=== PATIENT | female | born 1985 | race Asian ===

== ENCOUNTER → 2017-01-11 | Outpatient (CLI) | payer OTHER ==
[2017-01-11 12:17] LABS: HEMATOCRIT 37.5 % (34.6-47.8); HEMOGLOBIN 12.3 g/dL (11.7-16.4); WHITE BLOOD COUNT 8.8 x10^3/uL (3.4-10)
[2017-01-11 13:02] LABS: ASPARTATE AMINO TRANSFERASE 17 U/L (15-37); BLOOD UREA NITROGEN 13 mg/dL (7-18)
== END | disposition home or self-care (01) ==
LOC: CFH 07:36
PROVIDERS: ATTEND Family Medicine
DX: Z00.01 Encounter for general adult medical examination with abnormal findings (principal); E78.5 Hyperlipidemia, unspecified; R53.83 Other fatigue; R73.9 Hyperglycemia, unspecified; E55.9 Vitamin D deficiency, unspecified
CPT/HCPCS: 36415; 80053; 80061; 82306; 83036; 84443; 85025

== ENCOUNTER → 2018-04-23 | Outpatient (CLI) | payer OTHER ==
[2018-04-23 10:55] LABS: BASOPHILS # (AUTO) 0.11 x10^3/uL (0-0.1); BASOPHILS % (AUTO) 1 % (0-1); EOSINOPHILS # (AUTO) 0.11 x10^3/uL (0-0.4); EOSINOPHILS % (AUTO) 1 % (1-7); LYMPHOCYTES # (AUTO) 1.81 x10^3/uL (1-3.4); LYMPHOCYTES % (AUTO) 21 % (22-44); MD NO; MEAN CORPUSCULAR HEMOGLOBIN 29.1 pg (27.0-34.8); MEAN CORPUSCULAR HGB CONC 33.4 g/dL (32.4-35.8); MEAN PLATELET VOLUME 7.4 fL (7.4-10.4); MONOCYTES # (AUTO) 0.37 x10^3/uL (0.2-0.8); MONOCYTES % (AUTO) 4 % (2-9); NEUTROPHILS # (AUTO) 6.32 x10^3/uL (1.8-6.8); NEUTROPHILS % (AUTO) 73 % (42-75); PLATELET COUNT 432 x10^3/uL (130-400); RED BLOOD COUNT 4.67 x10^6/uL (3.82-5.3); RED CELL DISTRIBUTION WIDTH 14.3 % (9.6-15.2)
[2018-04-23 11:08] LABS: ALANINE AMINOTRANSFERASE 36 U/L (12-78); ALBUMIN 3.9 g/dL (3.4-5.0); ANION GAP 8 mmol/L (5-15); CALCIUM 8.5 mg/dL (8.5-10.1); CHLORIDE 106 mmol/L (98-107); CHOLESTEROL, TOTAL 214 mg/dL (140-239)
[2018-04-23 11:18] LABS: ALKALINE PHOSPHATASE 98 U/L (45-117); BILIRUBIN,TOTAL 0.3 mg/dL (0.2-1.0); CHOL/HDL RATIO 5.4; HDL CHOL % 19 % (28-40); HDL CHOLESTEROL (DIRECT) 40 mg/dL (40-60); LDL CHOLESTEROL,CALCULATED 154 mg/dL (54-169); LDL/HDL RATIO 3.9 (0.5-3.0); TOTAL PROTEIN 8.6 g/dL (6.4-8.2); TRIGLYCERIDES 102 mg/dL (50-200); VLDL CHOLESTEROL 20 mg/dL (0-25)
[2018-04-23 13:11] LABS: HEMOGLOBIN A1C 6.1 % (4.2-6.3)
== END | disposition home or self-care (01) ==
LOC: LAB 10:28
PROVIDERS: ATTEND Family Medicine
DX: Z00.00 Encounter for general adult medical examination without abnormal findings (principal); E55.9 Vitamin D deficiency, unspecified; E78.5 Hyperlipidemia, unspecified; R53.83 Other fatigue; R73.9 Hyperglycemia, unspecified
CPT/HCPCS: 36415; 80053; 80061; 82306; 83036; 84443; 85025

== ENCOUNTER → 2018-05-07 | Outpatient (CLI) | payer OTHER | END | disposition home or self-care (01) | LOC: CFH 12:58 | PROVIDERS: ATTEND Family Medicine | DX: N93.9 Abnormal uterine and vaginal bleeding, unspecified (principal) | CPT/HCPCS: 76830 ==

== ENCOUNTER → 2020-03-25 | Outpatient (CLI) | payer OTHER ==
[2020-03-25 11:15] LABS: ALBUMIN 3.7 g/dL (3.4-5.0); ANION GAP 5 mmol/L (5-15); CALCIUM 8.7 mg/dL (8.5-10.1); CHLORIDE 108 mmol/L (98-107)
[2020-03-25 11:16] LABS: BASOPHILS % (AUTO) 1 % (0-1); EOSINOPHILS % (AUTO) 2 % (1-7); LYMPHOCYTES % (AUTO) 20 % (22-44); MEAN CORPUSCULAR HEMOGLOBIN 27.6 pg (27.0-34.8); MEAN CORPUSCULAR HGB CONC 32.8 g/dL (32.4-35.8); MEAN PLATELET VOLUME 7.4 fL (7.4-10.4); MONOCYTES % (AUTO) 4 % (2-9); NEUTROPHILS % (AUTO) 73 % (42-75); PLATELET COUNT 499 x10^3/uL (130-400); RED BLOOD COUNT 3.96 x10^6/uL (3.82-5.3); RED CELL DISTRIBUTION WIDTH 14.2 % (9.6-15.2)
[2020-03-25 11:24] LABS: ALANINE AMINOTRANSFERASE 28 U/L (12-78); ALKALINE PHOSPHATASE 111 U/L (45-117); BILIRUBIN,TOTAL 0.3 mg/dL (0.2-1.0); CHOL/HDL RATIO 5.4; CHOLESTEROL, TOTAL 211 mg/dL (140-239); FREE T4 (FREE THYROXINE) 1.03 ng/dL (0.76-1.46); HDL CHOL % 18 % (28-40); HDL CHOLESTEROL (DIRECT) 39 mg/dL (40-60); LDL CHOLESTEROL,CALCULATED 144 mg/dL (54-169); LDL/HDL RATIO 3.7 (0.5-3.0); TOTAL PROTEIN 8.5 g/dL (6.4-8.2); TRIGLYCERIDES 138 mg/dL (50-200); VLDL CHOLESTEROL 28 mg/dL (0-25)
[2020-03-25 11:38] LABS: MD NO
== END | disposition home or self-care (01) ==
LOC: LAB 10:41
PROVIDERS: ATTEND Family Medicine
DX: Z01.411 Encounter for gynecological examination (general) (routine) with abnormal findings (principal); E55.9 Vitamin D deficiency, unspecified; E78.5 Hyperlipidemia, unspecified; R53.83 Other fatigue; R79.89 Other specified abnormal findings of blood chemistry
CPT/HCPCS: 36415; 80053; 80061; 82306; 84439; 84443; 85025

== ENCOUNTER 2020-12-29 11:05 | Outpatient (CLI) | payer OTHER ==
[2020-12-29 11:25] LABS: BASOPHILS % (AUTO) 1 % (0-1); EOSINOPHILS % (AUTO) 2 % (1-7); LYMPHOCYTES % (AUTO) 15 % (22-44); MEAN CORPUSCULAR HEMOGLOBIN 26.4 pg (27.0-34.8); MEAN CORPUSCULAR HGB CONC 32.7 g/dL (32.4-35.8); MEAN PLATELET VOLUME 7.3 fL (7.4-10.4); MONOCYTES % (AUTO) 4 % (2-9); NEUTROPHILS % (AUTO) 78 % (42-75); PLATELET COUNT 490 x10^3/uL (130-400); RED BLOOD COUNT 4.79 x10^6/uL (3.82-5.3); RED CELL DISTRIBUTION WIDTH 21.6 % (9.6-15.2)
[2020-12-29 11:53] LABS: CHLORIDE 104 mmol/L (98-107)
[2020-12-29 11:59] LABS: <PLATELET ESTIMATE> INCREASED; <PLT MORPHOLOGY> NORMAL PLT MORPH; ANISOCYTOSIS 1+; MICROCYTOSIS 1+; POLYCHROMASIA 1+
[2020-12-29 12:55] LABS: % IRON SATURATION 12 % (20-55); ALANINE AMINOTRANSFERASE 27 U/L (12-78); ALBUMIN 3.6 g/dL (3.4-5.0); ALKALINE PHOSPHATASE 91 U/L (45-117); ANION GAP 8 mmol/L (5-15); BILIRUBIN,TOTAL 0.3 mg/dL (0.2-1.0); CALCIUM 8.7 mg/dL (8.5-10.1); CHOL/HDL RATIO 4.6; CHOLESTEROL, TOTAL 199 mg/dL (140-239); CREATININE 0.75 mg/dL (0.55-1.02); FOLATE LEVEL 11.4 ng/mL (3.1-17.5); HDL CHOL % 22 % (28-40); HDL CHOLESTEROL (DIRECT) 43 mg/dL (40-60); IRON LEVEL 41 mcg/dL (50-170); LDL CHOLESTEROL,CALCULATED 132 mg/dL (54-169); LDL/HDL RATIO 3.1 (0.5-3.0); TOTAL IRON BINDING CAPACITY 354 mcg/dL (250-450); TOTAL PROTEIN 8.9 g/dL (6.4-8.2); TRIGLYCERIDES 118 mg/dL (50-200); VLDL CHOLESTEROL 24 mg/dL (0-25)
== END 2020-12-29 23:59 | disposition home or self-care (01) ==
LOC: LAB 11:05
PROVIDERS: ATTEND Internal Medicine
DX: D64.9 Anemia, unspecified (principal); E55.9 Vitamin D deficiency, unspecified; E78.5 Hyperlipidemia, unspecified; R79.89 Other specified abnormal findings of blood chemistry
CPT/HCPCS: 36415; 80053; 80061; 82306; 82607; 82728; 82746; 83036; 83540; 83550; 85025